=== PATIENT | male | born 1985 | race Two or more races ===

== ENCOUNTER 2021-11-11 22:37 | Inpatient (IN) | payer BC, OTHER ==
[~2021-11-11] VITALS: Ht 180.3 cm; Wt 219.0 kg
[2021-11-12 00:15] LABS: Basophils # (auto) 0.1 10 ^3/uL (0-0.2); Basophils % (auto) 0.7 % (0.0-2.0); Eosinophils # (auto) 0.1 10 ^3/uL (0-0.8); Eosinophils % (auto) 0.5 % (0.0-7.0); Hematocrit 41.2 % (41.0-53.0); Hemoglobin 13.7 g/dL (13.5-17.5); Lymphocytes # (auto) 1.2 10 ^3/uL (0.4-5.4); Lymphocytes % (auto) 6.6 % (10.0-50.0); Mean Corpuscular Hemoglobin 28.3 pg (28.0-32.0); Mean Corpuscular Hgb Conc. 33.3 g/dL (32.0-36.0); Monocytes # (auto) 0.6 10 ^3/uL (0-1.3); Monocytes % (auto) 3.3 % (0.0-12.0); Neutrophils # (auto) 15.7 10 ^3/uL (1.6-8.6); Neutrophils % (auto) 88.9 % (37.0-80.0); Nucleated Red Blood Cells % 0.2 %; Red Blood Cells 4.85 10^6/uL (4.5-5.90); Red Cell Distribution Width 13.2 % (11.8-14.3); White Blood Cell 17.6 10^3/uL (4.4-10.8)
[2021-11-12 00:23] LABS: Albumin 3.4 g/dL (3.4-5.0); BUN/Creatinine Ratio 10.5; Calcium 9.3 mg/dL (8.5-10.1); Potassium 4.2 mmol/L (3.5-5.1)
[2021-11-12 00:25] LABS: Bilirubin, Total 0.2 mg/dL (0.2-1.0); Total Protein 7.7 g/dL (6.4-8.2)
[2021-11-12 02:20] LABS: Urine Bacteria NONE SEEN /hpf (None Seen); Urine Blood Negative /uL (Negative); Urine Mucus FEW (None Seen); Urine Specific Gravity 1.032 (1.001-1.035); Urine WBC 4 /hpf (0 - 3)
[2021-11-12] MEDS ORDERED: cefTRIAXone SOD 1,000 MG VL IM ONE (03:15)
[2021-11-12] MEDS ORDERED: ONDANSETRON HCL 4 MG/2 ML VIAL IM ONE (07:45)
[2021-11-12] MEDS ORDERED: HYDROmorphone HCL 2 MG/ML VL IM ONE (07:45)
[2021-11-12] MEDS ORDERED: PIPERACILLIN-TAZOB 3.375GM 100 ML IV ONE (09:00)
[2021-11-12] MEDS ORDERED: MORPHINE SULFATE INJECTION 2 MG/ML SYRG IV PRN ×3 (10:30→11:30)
[2021-11-12] MEDS ORDERED: NITROGLYCERIN 0.4 MG SL TAB SL PRN ×2 (10:30→11:30)
[2021-11-12] MEDS ORDERED: D5W/SOD CHL 0.45%/KCL 20MEQ 1,000 ML IV ONE (11:00)
[2021-11-12] MEDS ORDERED: LORazepam 0.5 MG TAB PO PRN (11:30)
[2021-11-12] MEDS ORDERED: metroNIDAZOLE 500MG/100ML 100 ML IV ONE (11:30)
[2021-11-12] MEDS ORDERED: DOCUSATE SOD 100 MG CAP PO PRN (11:30)
[2021-11-12] MEDS ORDERED: FAMOTIDINE (10MG/ML) 2ML VL IV ONE (11:30)
[2021-11-12] MEDS ORDERED: HYDROcodone-ACET 5/325MG TAB PO PRN (11:30)
[2021-11-12] MEDS ORDERED: SODIUM CHLORIDE 0.9% 1,000 ML IV ONE (11:30)
[2021-11-12] MEDS ORDERED: ALUM & MAG HYDROX-SIMETH LIQ(MAALOX) 30 ML PO PRN (11:30)
[2021-11-12] MEDS ORDERED: METOCLOPRAMIDE HCL 5MG/ml INJ 2ml VIAL IV PRN (11:30)
[2021-11-12 12:07] LABS: Alcohol, Urine < 3.0 mg/dL (0-10); Amphetamine Screen, Urine NEGATIVE (NEGATIVE); Barbiturate Scree,Urine NEGATIVE (NEGATIVE); Benzodiazephine Screen, Urine NEGATIVE (NEGATIVE); Cannabinoid Screen, Urine POSITIVE (NEGATIVE); Cocaine Screen, Urine NEGATIVE (NEGATIVE); Phencyclidine Screen, Urine NEGATIVE (NEGATIVE)
[2021-11-12 12:15] LABS: Opiate Scree,Urine NEGATIVE (NEGATIVE)
[2021-11-12] MEDS: D5W/SOD CHLO 0.9% 1,000 ML IV SCH (12:48)
[2021-11-12] MEDS: cefTRIAXone 1GM/50ML D5W 50 ML IV SCH (13:18)
[2021-11-12 14:01] LABS: Cholesterol 235 mg/dL (< 200)
[2021-11-12 14:04] LABS: HDL Cholesterol 45 mg/dL (40-59); LDL Cholesterol 156 mg/dL (< 100); Triglycerides 157 mg/dL (< 150)
[2021-11-12] MEDS: metroNIDAZOLE 500MG/100ML 100 ML IV SCH ×2 (15:25→21:58)
[2021-11-12 17:54] VITALS: BP 168/89
[2021-11-12 20:00] VITALS: BP 148/71
[2021-11-12] MEDS: FAMOTIDINE (10MG/ML) 2ML VL IV SCH (21:58)
[2021-11-12 22:34] VITALS: BP 148/71
[2021-11-13] MEDS: ACETAMINOPHEN 325 MG TAB PO PRN ×2 (04:15→13:00)
[2021-11-13] MEDS: metroNIDAZOLE 500MG/100ML 100 ML IV SCH ×3 (05:22→21:00)
[2021-11-13 05:23] VITALS: BP 156/88
[2021-11-13 05:36] LABS: Basophils # (auto) 0.1 10 ^3/uL (0-0.2); Basophils % (auto) 0.8 % (0.0-2.0); Eosinophils # (auto) 0.1 10 ^3/uL (0-0.8); Eosinophils % (auto) 0.8 % (0.0-7.0); Hematocrit 38.3 % (41.0-53.0); Lymphocytes # (auto) 1.6 10 ^3/uL (0.4-5.4); Lymphocytes % (auto) 14.8 % (10.0-50.0); Mean Corpuscular Hemoglobin 28.7 pg (28.0-32.0); Mean Corpuscular Hgb Conc. 33.9 g/dL (32.0-36.0); Mean Corpuscular Volume 84.6 fL (80.0-100.0); Monocytes # (auto) 0.7 10 ^3/uL (0-1.3); Neutrophils # (auto) 8.1 10 ^3/uL (1.6-8.6); Neutrophils % (auto) 76.6 % (37.0-80.0); Red Blood Cells 4.52 10^6/uL (4.5-5.90); Red Cell Distribution Width 13.3 % (11.8-14.3); White Blood Cell 10.6 10^3/uL (4.4-10.8)
[2021-11-13 05:50] LABS: INR 1.05 (0.9-1.15); Partial Thromboplastin Time 27.9 sec (23.6-33.0)
[2021-11-13 05:52] LABS: Calcium 8.5 mg/dL (8.5-10.1); Magnesium 3.3 mg/dL (1.6-2.6); Potassium 3.5 mmol/L (3.5-5.1)
[2021-11-13 06:01] LABS: BUN/Creatinine Ratio 10.3; Bilirubin, Total 0.4 mg/dL (0.2-1.0); Phosphorus 3.5 mg/dL (2.5-4.90); Uric Acid 7.6 mg/dL (3.5-7.2)
[2021-11-13 09:00] VITALS: BP 119/74
[2021-11-13] MEDS: cefTRIAXone 1GM/50ML D5W 50 ML IV SCH (09:55)
[2021-11-13] MEDS: FAMOTIDINE (10MG/ML) 2ML VL IV SCH ×2 (09:55→21:48)
[2021-11-13] MEDS: D5W/SOD CHLO 0.9% 1,000 ML IV SCH (09:59)
[2021-11-13 12:13] VITALS: BP 155/80
[2021-11-13 21:22] VITALS: BP 167/100
[2021-11-13 22:00] VITALS: BP 148/93
[2021-11-14 05:39] VITALS: BP 136/83
[2021-11-14] MEDS: metroNIDAZOLE 500MG/100ML 100 ML IV SCH ×3 (06:02→23:06)
[2021-11-14 07:29] LABS: Basophils # (auto) 0.1 10 ^3/uL (0-0.2); Basophils % (auto) 0.8 % (0.0-2.0); Eosinophils # (auto) 0.2 10 ^3/uL (0-0.8); Eosinophils % (auto) 2.3 % (0.0-7.0); Hematocrit 40.5 % (41.0-53.0); Hemoglobin 13.6 g/dL (13.5-17.5); Lymphocytes # (auto) 2.2 10 ^3/uL (0.4-5.4); Lymphocytes % (auto) 20.8 % (10.0-50.0); Mean Corpuscular Hemoglobin 28.7 pg (28.0-32.0); Mean Corpuscular Hgb Conc. 33.7 g/dL (32.0-36.0); Mean Corpuscular Volume 85.1 fL (80.0-100.0); Monocytes # (auto) 0.8 10 ^3/uL (0-1.3); Neutrophils # (auto) 7.2 10 ^3/uL (1.6-8.6); Neutrophils % (auto) 68.1 % (37.0-80.0); Nucleated Red Blood Cells % 0.2 %; Red Blood Cells 4.76 10^6/uL (4.5-5.90); Red Cell Distribution Width 13.6 % (11.8-14.3); White Blood Cell 10.5 10^3/uL (4.4-10.8)
[2021-11-14 07:40] LABS: Calcium 8.9 mg/dL (8.5-10.1); Potassium 4.1 mmol/L (3.5-5.1)
[2021-11-14 07:41] LABS: BUN/Creatinine Ratio 8.2
[2021-11-14 08:00] VITALS: BP_SYST 159; BP_SYST 163; BP_DIAS 91; BP_DIAS 94
[2021-11-14] MEDS: cefTRIAXone 1GM/50ML D5W 50 ML IV SCH (09:16)
[2021-11-14] MEDS: FAMOTIDINE (10MG/ML) 2ML VL IV SCH ×2 (09:17→23:06)
[2021-11-14 12:00] VITALS: BP 160/90
[2021-11-14 16:00] VITALS: BP 132/82
[2021-11-15] MEDS: metroNIDAZOLE 500MG/100ML 100 ML IV SCH (06:36)
[2021-11-15 07:07] LABS: Basophils # (auto) 0.1 10 ^3/uL (0-0.2); Basophils % (auto) 0.9 % (0.0-2.0); Eosinophils # (auto) 0.4 10 ^3/uL (0-0.8); Lymphocytes # (auto) 2.2 10 ^3/uL (0.4-5.4); Mean Corpuscular Hemoglobin 28.1 pg (28.0-32.0); Mean Corpuscular Hgb Conc. 33.3 g/dL (32.0-36.0); Mean Corpuscular Volume 84.5 fL (80.0-100.0); Monocytes # (auto) 0.7 10 ^3/uL (0-1.3); Monocytes % (auto) 6.9 % (0.0-12.0); Neutrophils # (auto) 7.5 10 ^3/uL (1.6-8.6); Neutrophils % (auto) 68.2 % (37.0-80.0); Nucleated Red Blood Cells % 0.1 %; Red Blood Cells 4.98 10^6/uL (4.5-5.90); Red Cell Distribution Width 13.3 % (11.8-14.3); White Blood Cell 10.9 10^3/uL (4.4-10.8)
[2021-11-15 07:21] LABS: BUN/Creatinine Ratio 8.6; Calcium 9.1 mg/dL (8.5-10.1); Potassium 3.9 mmol/L (3.5-5.1)
[2021-11-15 08:00] VITALS: BP 137/94
[2021-11-15 08:46] VITALS: BP 137/94
[2021-11-15] MEDS: FAMOTIDINE (10MG/ML) 2ML VL IV SCH (09:15)
[2021-11-15] MEDS: cefTRIAXone 1GM/50ML D5W 50 ML IV SCH (09:15)
[2021-11-15] MEDS ORDERED: LEVO500T31 PO (10:38)
[2021-11-15] MEDS ORDERED: METR500T PO (10:38)
== END 2021-11-15 12:05 | disposition home or self-care (01) | DRG 872 ==
LOC: ER 22:41 → OVERFLOW 11-12 10:21 → CENTRAL 11-12 17:53 → WEST WING 11-13 18:55
PROVIDERS: ADMIT Hospitalist; ATTEND Family Medicine
DX: A41.9 Sepsis, unspecified organism (principal); K35.80 Unspecified acute appendicitis; Z68.44 Body mass index [BMI] 60.0-69.9, adult; K75.81 Nonalcoholic steatohepatitis (NASH); E66.01 Morbid (severe) obesity due to excess calories; R74.8 Abnormal levels of other serum enzymes; Z20.822 Contact with and (suspected) exposure to COVID-19
CPT/HCPCS: 36415; 74176; 76705; 78226; 80048; 80053; 80061; 80307; 81001; 83036; 83690; 83735; 83880; 84100; 84443; 84484; 84550; 85025; 85379; 85610; 85730; 87040; 87086; 87426; 96361; 96365; 96367; 96372; G0378; J0696; J2405; J2543; J3490; J7042